=== PATIENT | female | born 1955 | race Caucasian/White ===

== ENCOUNTER 2017-05-16 18:10 | Emergency (ER) | payer BC ==
[~2017-05-16] VITALS: Wt 100.0 kg
[~2017-05-16 18:10] MED LIST: ACET500C5 PO; AZIT250T94 PO; D-ME118S6 PO
--- NOTE | 2017-05-16 19:20 | RADRPT ---
PROCEDURE: CT Brain without contrast. CLINICAL INDICATION: Trauma, fall, headache TECHNIQUE: A CT of the brain was performed utilizing axial imaging from the skull base through the vertex without IV contrast. Multiplanar reformatted images were made. Images were reviewed on a Personal workstation. The CTDIvol is 41.28 mGy and the DLP is 720.23 mGycm. One or more the following dose reduction techniques were utilized: Automated exposure control, adjus tment of the mA and / or kV according to patient's size, or use of iterative reconstruction techniqu e. DICOM images are available. COMPARISON: None. FINDINGS: There is no intracranial hemorrhage, mass effect, or midline shift. No extra-axial fluid collection is seen. The ventricles and sulci are normal in size and configuration. There is patchy decreased a ttenuation in the periventricular and deep white matter, somewhat nonspecific though likely reflecti ve of minimal microvascular ischemic disease. The alicea white matter differentiation appears well-pr eserved. The visualized paranasal sinuses and osseous structures are grossly unremarkable. IMPRESSION: 1. No evidence of acute intracranial pathology. 2. Minimal microvascular ischemic disease in the periventricular and deep white matter. 3. The brain is otherwise normal in appearance. RPTAT: HJES .Tristan Zuñiga MD, MD Date Time Electronically viewed and signed by .Tristan Zuñiga MD, on 05/16/2017 19:20 .S/
--- NOTE | 2017-05-16 19:30 | RADRPT ---
PROCEDURE: CT lumbar spine without contrast CLINICAL INDICATION: Trauma, back pain. TECHNIQUE: A CT scan of the lumbar spine was performed without intravenous contrast. Coronal and s agittal reformatted images were generated. DICOM images are available. CTDIvol: 38.44 mGy. DLP: 1028 .90 mGy-cm. One or more of the following dose reduction techniques were used: - Automated exposure control. - Adjustment of the mA and/or kV according to patient size. - Use of iterative reconstruction technique. COMPARISON: None. FINDINGS: The lumbar lordosis is preserved. The vertebral body heights are maintained. Bone mineralization i s normal and there is no suspicious osseous lesion. No fracture or subluxation is identified. T12-L1: There is no significant degenerative change. No spinal canal stenosis or neural foraminal n arrowing is seen. L1-L2: There is minimal disc bulging without spinal canal stenosis or neural foraminal narrowing. L2-L3: There is grade 1 degenerative L2 retrolisthesis (2 mm) mild disc bulging, leading to mild to moderate spinal canal stenosis (8 mm AP canal diameter). There is also mild bilateral neural foramin al narrowing due to disc bulging. L3-L4: There is grade 1 degenerative L3 retrolisthesis (2 mm) and mild disc bulging, leading to mild to moderate spinal canal stenosis (8 mm AP canal diameter). There is also mild bilateral neural for aminal narrowing at this level para L4-L5: There is disc bulging, leading to moderate to severe spinal canal stenosis (6 mm AP canal margarita meter). There is also moderate to severe bilateral facet arthrosis and moderate bilateral neural for aminal narrowing at this level. L5-S1: Posterior bulging leads to moderate spinal canal stenosis (7 mm AP canal diameter). There is also moderate to severe bilateral facet arthrosis and moderate bilateral neural foraminal narrowing. There are minimal arterial calcifications. IMPRESSION: 1. No lumbar spine fracture or subluxation. 2. Multilevel degenerative changes, described in detail in the findings. 3. Mild to moderate spinal canal stenosis at L2-L3 and L3-L4, moderate to severe spinal canal steno sis at L4-L5, and moderate spinal canal stenosis at L5-S1. 4. Moderate bilateral neural foraminal narrowings at L4-L5 and L5-S1. RPTAT: HTAR .Arnaldo Faith MD, MD Date Time Electronically viewed and signed by .Arnaldo Faith MD, MD on 05/16/2017 19:30 .R/
[2017-05-16] MEDS ORDERED: METH750T93 PO (19:42)
[2017-05-16] MEDS ORDERED: IBUP800T25 PO (19:42)
[2017-05-16] MEDS ORDERED: HYDR-906 PO (19:42)
--- NOTE | 2017-05-16 19:49 | ERD ---
ER Documentation Chief Complaint Chief Complaint HEAD INJURY S/P [facility] FALL, DIZZINESS, FEELS FAINTING HPI This is a 61-year-old female who slipped and fell at a nail salon. The patient was transferring from chair to chair and there was water on the floor and she slipped and fell her this is a witnessed fall the patient apparently hit her head and was briefly knocked unconscious but says she does not recall falling and hitting her head. It was witnessed by bystanders who is here. The patient after the fall and did not know where she was and was confused for a brief period of less than a minute. She is complaining of a dull headache however she is taking oxycodone before coming in. She also complains that she landed on her left buttocks is complaining of left buttocks and left back pain with radiation down the leg to the knee. No loss of bowel or bladder. Denies any neck pain chest pain abdominal pain no other extremity pain no difficulty breathing no dizziness no excessive sleepiness no nausea or vomiting, no focal neurological complaints ROS All systems reviewed and are negative except as per history of present illness. Medications Home Meds Active Scripts Hydrocodone/Acetaminophen ([place] 5-325 Tablet) 1 Each Tablet, 1 TAB PO Q6H Y for PAIN, #7 TAB Prov:NELLY WILKERSON DO 05/16/17 Methocarbamol* (Robaxin*) 750 Mg Tablet, 750 MG PO TID, #20 TAB Prov:WENDY WILKERSONS Janis DO 05/16/17 Ibuprofen* (Motrin*) 800 Mg Tab, 800 MG PO Q6H Y for PAIN AND OR ELEVATED TEMP, #30 TAB Prov:NELLY WILKERSON DO 05/16/17 Discontinued Scripts Acetaminophen* (Tylophen*) 500 Mg Capsule, 1 CAP PO Q6H Y for PAIN AND OR ELEVATED TEMP, #14 CAP Prov:YVES JOYNER MD 11/22/15 Dextromethorphan Hb-Promethazine Hcl (Promethazine DM Syrup) 180 Ml Syrup, 5 ML PO Q6H Y for COUGH, #6 OZ Prov:YVES JOYNER MD 11/22/15 Azithromycin* (Zithromax*) 250 Mg Tablet, 250 MG PO .RejiPACK DIRECTED, #6 TAB TAKE 500 MG (2 TABS) THE FIRST DAY THEN 250 MG (1 TAB) DAYS 2-5 Prov:YVES JOYNER MD 11/22/15 Allergies Allergies: Coded Allergies: No Known Allergy (Unverified , 05/16/17) PMhx/Soc History of Surgery: No Anesthesia Reaction: No Hx Neurological Disorder: No Hx Respiratory Disorders: No Hx Cardiac Disorders: No Hx Psychiatric Problems: No Hx Miscellaneous Medical Probl: No Hx Alcohol Use: No Hx Substance Use: No Hx Tobacco Use: No Smoking Status: Never smoker FmHx Family History: No coronary disease Physical Exam Vitals Vital Signs Date Time Temp Pulse Resp B/P Pulse Ox O2 Delivery O2 Flow Rate FiO2 05/16/17 18:16 97.1 56 18 127/67 98 Physical Exam C Const: Well-developed, well-nourished Head: Atraumatic, normocephalic Eyes: Normal Conjunctiva, PERRLA, EOMI, normal sclera, no nystagmus ENT: Normal External Ears, Nose and Mouth, moist mucus membranes. Neck: Full range of motion. No meningismus, no lymphadenopathy. Resp: Clear to auscultation bilaterally, no wheezing, rhonchi, rales Cardio: Regular rate and rhythm, no murmurs, S1 S2 present Abd: Soft, non tender x 4, non distended. Normal bowel sounds, no guarding or rebound, no pulsitile abdominal masses or bruits Skin: No petechiae or rashes, no ecchymosis , no maculopapular rash Back: Left-sided paraspinal lumbar pain is tender to palpation with muscle spasm worse with movement, positive straight leg test on the left no saddle anesthesia Ext: No cyanosis, or edema, FROM x 4, normal inspection, neurovascularly intact x 4 Neur: Awake and alert, STR 5/5 x 4, sensation intact x 4, no focal findings, cerebellum intact Psych: Normal Mood and Affect Procedures/MDM PROCEDURE: CT Brain without contrast. CLINICAL INDICATION: Trauma, fall, headache TECHNIQUE: A CT of the brain was performed utilizing axial imaging from the skull base through the vertex without IV contrast. Multiplanar reformatted images were made. Images were reviewed on a PACS workstation. The CTDIvol is 41.28 mGy and the DLP is 720.23 mGycm. One or more the following dose reduction techniques were utilized: Automated exposure control, adjustment of the mA and / or kV according to patient's size, or use of iterative reconstruction technique. DICOM images are available. COMPARISON: None. FINDINGS: There is no intracranial hemorrhage, mass effect, or midline shift. No extra- axial fluid collection is seen. The ventricles and sulci are normal in size and configuration. There is patchy decreased attenuation in the periventricular and deep white matter, somewhat nonspecific though likely reflective of minimal microvascular ischemic disease. The alicea white matter differentiation appears well-preserved. The visualized paranasal sinuses and osseous structures are grossly unremarkable. IMPRESSION: 1. No evidence of acute intracranial pathology. 2. Minimal microvascular ischemic disease in the periventricular and deep white matter. 3. The brain is otherwise normal in appearance. RPTAT: HJES .Tristan Zuñiga MD, MD Date Time Electronically viewed and signed by .Tristan Zuñiga MD, on 05/16/2017 19:20 .S/ CC: NELLY WILKERSON DO PROCEDURE: CT lumbar spine without contrast CLINICAL INDICATION: Trauma, back pain. TECHNIQUE: A CT scan of the lumbar spine was performed without intravenous contrast. Coronal and sagittal reformatted images were generated. DICOM images are available. CTDIvol: 38.44 mGy. DLP: 1028.90 mGy-cm. One or more of the following dose reduction techniques were used: - Automated exposure control. - Adjustment of the mA and/or kV according to patient size. - Use of iterative reconstruction technique. COMPARISON: None. FINDINGS: The lumbar lordosis is preserved. The vertebral body heights are maintained. Bone mineralization is normal and there is no suspicious osseous lesion. No fracture or subluxation is identified. T12-L1: There is no significant degenerative change. No spinal canal stenosis or neural foraminal narrowing is seen. L1-L2: There is minimal disc bulging without spinal canal stenosis or neural foraminal narrowing. L2-L3: There is grade 1 degenerative L2 retrolisthesis (2 mm) mild disc bulging , leading to mild to moderate spinal canal stenosis (8 mm AP canal diameter). There is also mild bilateral neural foraminal narrowing due to disc bulging. L3-L4: There is grade 1 degenerative L3 retrolisthesis (2 mm) and mild disc bulging, leading to mild to moderate spinal canal stenosis (8 mm AP canal diameter). There is also mild bilateral neural foraminal narrowing at this level para L4-L5: There is disc bulging, leading to moderate to severe spinal canal stenosis (6 mm AP canal diameter). There is also moderate to severe bilateral facet arthrosis and moderate bilateral neural foraminal narrowing at this level. L5-S1: Posterior bulging leads to moderate spinal canal stenosis (7 mm AP canal diameter). There is also moderate to severe bilateral facet arthrosis and moderate bilateral neural foraminal narrowing. There are minimal arterial calcifications. IMPRESSION: 1. No lumbar spine fracture or subluxation. 2. Multilevel degenerative changes, described in detail in the findings. 3. Mild to moderate spinal canal stenosis at L2-L3 and L3-L4, moderate to severe spinal canal stenosis at L4-L5, and moderate spinal canal stenosis at L5- S1. 4. Moderate bilateral neural foraminal narrowings at L4-L5 and L5-S1. RPTAT: HTAR .Arnaldo Faith MD, MD Date Time Electronically viewed and signed by .Arnaldo Faith MD, on 05/16/2017 19:30 .R/ CC: NELLY WILKERSON DO No evidence of acute fracture or brain injury. Patient has a concussion. Patient will follow up with primary care physician. She was given head precautions Departure Diagnosis: Primary Impression: Concussion Encounter type: initial encounter Loss of consciousness presence/duration: with LOC of unspecified duration Qualified Code: S06.0X9A - Concussion with loss of consciousness, initial encounter Additional Impressions: Lumbar contusion Encounter type: initial encounter Qualified Code: S30.0XXA - Lumbar contusion, initial encounter Lumbar radicular pain Condition: Stable Patient Instructions: Concussion, Back Pain W/ Sciatica WENDY WILKERSONS A. DO May 16, 2017 19:49
[2017-05-16 19:58] VITALS: BP 109/72; PULSE 88; RESP 20; TEMP 97.1
== END 2017-05-16 19:58 | disposition home or self-care (01) ==
LOC: E/R 18:10
DX: S06.0X9A Concussion with loss of consciousness of unspecified duration, initial encounter (principal); S30.0XXA Contusion of lower back and pelvis, initial encounter; W07.XXXA Fall from chair, initial encounter; Y92.9 Unspecified place or not applicable
CPT/HCPCS: 70450; 72131